=== PATIENT | male | born 1995 | race Caucasian/White ===

== ENCOUNTER 2019-11-30 07:55 | Day surgery (SDC) | payer BC ==
[~2019-11-30 07:55] MED LIST: Dextrose 5%-0.45% NaCl 1,000 ML IV SCH; Midazolam 1 MG/ML 2 ML SDV ONE; fentaNYL 100 MCG/2 ML SDV ONE
[2019-11-30] MEDS ORDERED: Midazolam 1 MG/ML 2 ML SDV IV ONE (07:56)
[2019-11-30] MEDS ORDERED: fentaNYL 100 MCG/2 ML SDV IV ONE (07:56)
[2019-11-30] MEDS ORDERED: Midazolam 1 MG/ML 2 ML SDV ONE (09:28)
--- NOTE | 2019-11-30 13:22 | OR ---
DATE: 11/30/2019 PREOPERATIVE DIAGNOSIS: Intermittent rectal bleeding. POSTOPERATIVE DIAGNOSIS: Intermittent rectal bleeding. PROCEDURE: Total colonoscopy. ANESTHESIA: Conscious sedation with IV Versed and fentanyl. SPECIMEN: None. OPERATIVE FINDINGS: Normal colonoscopy. RECOMMENDATIONS: Followup as needed. INDICATION FOR PROCEDURE: This 24-year-old male has intermittent rectal bleeding, and he has no evidence of external hemorrhoids. PROCEDURE IN DETAIL: After adequate preparation, the colonoscope was inserted into the rectum. This was easily passed all the way to the cecum. Confirmation of the cecum was made by visualization of the ileocecal valve and the appendiceal opening. A photograph of this was taken. On withdrawal of the scope, the bowel prep was very good and there were no abnormalities noted. Air was suctioned from the colon and the scope removed. [facility] /[id number]
== END 2019-11-30 11:27 | disposition home or self-care (01) ==
LOC: DL.ENDO 07:55
PROVIDERS: ATTEND Surgery
DX: K62.5 Hemorrhage of anus and rectum (principal); Z83.79 Family history of other diseases of the digestive system
CPT/HCPCS: 45378; J7042; G0121; J2250; J3010